=== PATIENT | male | born 2000 | race Caucasian/White ===

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

== ENCOUNTER 2018-12-16 17:19 | Emergency (ER) | payer OTHER, SELFPAY ==
[~2018-12-16] VITALS: Ht 175.3 cm; Wt 100.0 kg
[2018-12-16 17:19] VITALS: BP 133/63
--- NOTE | 2018-12-17 07:25 | REP ---
REASON: Pain involving the 1st digit of the right foot after trauma. There is a fracture involving the lateral corner of the base of the distal phalanx of the first digit of the right foot with an articular component. IMPRESSION: Fracture distal phalanx 1st digit as described above. Electronically Signed by Eduar Retana DO 12/17/2018 10:19 A
== END 2018-12-16 18:24 | disposition home or self-care (01) ==
LOC: M ED 17:19
DX: S92.421A Displaced fracture of distal phalanx of right great toe, initial encounter for closed fracture (principal); W22.8XXA Striking against or struck by other objects, initial encounter; Y92.410 Unspecified street and highway as the place of occurrence of the external cause; Y93.9 Activity, unspecified; Y99.9 Unspecified external cause status; Z72.0 Tobacco use

== ENCOUNTER → 2021-06-22 | Outpatient (CLI) | payer SELFPAY ==
[~2021-06-22] MED LIST: ACET-683 PO
== END ==
LOC: M SOG 14:06
PROVIDERS: ATTEND Orthopaedic Surgery Hand Surgery
DX: S82.54XA Nondisplaced fracture of medial malleolus of right tibia, initial encounter for closed fracture (principal)

== ENCOUNTER → 2021-06-29 | Outpatient (CLI) | payer SELFPAY | LOC: M SOG 09:46 | PROVIDERS: ATTEND Orthopaedic Surgery Hand Surgery | DX: S82.51XA Displaced fracture of medial malleolus of right tibia, initial encounter for closed fracture (principal); X58.XXXA Exposure to other specified factors, initial encounter; Y92.9 Unspecified place or not applicable; Y93.9 Activity, unspecified; Y99.9 Unspecified external cause status ==

== ENCOUNTER → 2021-07-30 | Outpatient (CLI) | payer SELFPAY | LOC: M SOG 09:09 | PROVIDERS: ATTEND Orthopaedic Surgery Hand Surgery | DX: S82.51XD Displaced fracture of medial malleolus of right tibia, subsequent encounter for closed fracture with routine healing (principal); W18.30XD Fall on same level, unspecified, subsequent encounter ==